=== PATIENT | female | born 1950 | race Caucasian/White ===

== ENCOUNTER 2018-09-12 07:40 | Outpatient (CLI) | payer MEDICARE, MEDICAID ==
--- NOTE | 2018-09-12 13:43 | PET ---
PET WITH CT SKULL TO MID THIGH: CLINICAL HISTORY: Lung tumor, left suprahilar region. There are no comparisons available. RADIOPHARMACEUTICAL: 13.2 mCi F18-FDG interspersed with 10 mL 0.9% sodium chloride, IV. There is appropriate biodistribution of the radiotracer activity. FINDINGS: There is abnormal increased metabolic activity localizing to mass of the left posteromedial lung apex extending to involve the superior aspect of the left hilum. Maximum SUV is approximately 3.0. There is motion artifact markedly distorting the head and neck region. There is activity localizing t o the hard palate, which could relate to misregistration related to the significant degree of patient motion. Left lower quadrant ostomy with presumed physiologic increased activity within bowel at the site of ostomy is seen. There is evidence of pulmonary emphysema. Nonspecific ground-glass opacity is seen at the posterior and lateral right upper lobe, and there is ground-glass reticulonodularity of the left lower lobe. Subpleural patchy ground-glass opacity is seen at the lateral right lung base. IMPRESSION: 1. Abnormal hypermetabolic activity is present, conforming to the soft tissue mass of the posteromed ial left upper lobe, contiguous with the left suprahilar region, which does indicate malignancy. 2. There are scattered nonspecific bilateral ground-glass parenchymal and nodular opacities of each lung superimposed upon pulmonary emphysema. These findings are below threshold for PET resolution. Re commend continued follow-up with CT thorax imaging. 3. Distortion at the head/neck region due to motion distortion. This precludes reliable evaluation o f this region. POS: NORMA
== END 2018-09-12 07:41 | disposition home or self-care (01) ==
LOC: PET 07:40
PROVIDERS: ATTEND Family Medicine
DX: D49.1 Neoplasm of unspecified behavior of respiratory system (principal); R91.8 Other nonspecific abnormal finding of lung field; M95.2 Other acquired deformity of head
CPT/HCPCS: 78815; A9552

== ENCOUNTER 2019-03-20 09:57 | Outpatient (CLI) | payer MEDICARE, MEDICAID ==
[2019-03-20] MEDS ORDERED: ISOVUE-370 76%-LOCM 1 ML ONE (12:46)
--- NOTE | 2019-03-20 14:06 | CT ---
CT CHEST: DATE: 03/20/2019. COMPARISON: 08/07/2013. HISTORY: Lung cancer. TECHNIQUE: Axial CT imaging at 3 mm intervals through the chest with IV contrast. Coronal reformatted imaging o btained. FINDINGS: There is no axillary lymphadenopathy noted. The imaged upper abdomen demonstrates diffuse hypodensity of the imaged hepatic parenchyma, evidence of steatosis. There is atherosclerotic calcification of the upper abdominal aorta and its branches. There is no significant pleural, pericardial, or mediastinal fluid seen. Right-sided Port-A-Cath present. No pneumothorax is noted on either side. There are upper lobe emphysematous changes noted. The bronchi supplying the left lower lobe are irregular with mild nonspecific bronchial wall thickeni ng which could be related to inflammatory change or prior radiation change. The bronchus supplying t jame left upper lobe appears completely occluded. Just superior to the occluded bronchus supplying the left upper lobe there is a mass in the hilar/suprahilar region on the left measuring approximately 3 cm in transverse dimension. When compared to the 2013 examination, the occlusion of the bronchus garner pplying the left upper lobe is new, the thickening and irregularity of the bronchi supplying the left lobe is new, and the mass lesion in the suprahilar region on the left is new. Superior to the left suprahilar mass is significant volume loss involving the left upper lobe with associated shift of the mediastinal structures superiorly and to the left. No additional mass lesion/nodule noted within the left hemithorax. No discrete/dominant pulmonary parenchymal mass lesion or nodule is noted within the right lower lobe , right middle lobe, or right upper lobe. Review of the osseous structures demonstrates no worrisome lytic or blastic bone lesions. IMPRESSION: Since the 2013 examination, there is a new left suprahilar mass obliterating the bronchus supplying t jame left upper lobe. This mass measures at least 3.0 cm in greatest dimension. Superior to this is s ignificant atelectatic change involving the left upper lobe extending into the left lung apex. There is also new irregularity involving the bronchi supplying the left lower lobe which is felt to be the result of radiation therapy and associated scar/fibrotic change. The left suprahilar mass is consis tent with malignancy. POS: OFF
== END 2019-03-20 09:58 | disposition home or self-care (01) ==
LOC: BICCT 09:57
PROVIDERS: ATTEND Internal Medicine Hematology & Oncology
DX: C34.90 Malignant neoplasm of unspecified part of unspecified bronchus or lung (principal); R91.8 Other nonspecific abnormal finding of lung field
CPT/HCPCS: 71260; 82565; Q9966

== ENCOUNTER 2019-07-31 09:02 | Outpatient (CLI) | payer MEDICARE, MEDICAID ==
--- NOTE | 2019-07-31 10:51 | MMO ---
Bilateral MAMMO Bilat Diag DDI+JOSE. CLINICAL HISTORY: Patient is 69 years old and is seen for screening. The patient has the following family history of breast cancer: sister, at age 58. VIEWS: The views performed were: bilateral craniocaudal with tomosynthesis and bilateral mediolateral oblique with tomosynthesis. FILMS COMPARED: The present examination has been compared to a prior imaging study performed at [facility] on 07/31/2019. This study has been interpreted with the assistance of computer-aided detection. MAMMOGRAM FINDINGS: There are scattered fibroglandular densities. There are no suspicious masses, suspicious calcifications, or new areas of architectural distortion. There are no mammographic or sonographic abnormalities in the area of palpable concern. The patient is referred back to her clinician. Negative imaging findings should not preclude biopsy if clinical findings are suspicious. IMPRESSION: THERE IS NO MAMMOGRAPHIC EVIDENCE OF MALIGNANCY. THE RESULTS OF THIS EXAM WERE SENT TO THE PATIENT. ACR BI-RADS Category 1 - Negative MAMMOGRAPHY NOTE: 1. A negative mammogram report should not delay a biopsy if a dominant of clinically suspicious mass is present. 2. Approximately 10% to 15% of breast cancers are not detected by mammography. 3. Adenosis and dense breasts may obscure an underlying neoplasm. Reported by: TRIXIE WALL MD Electonically Signed: [id number]
--- NOTE | 2019-07-31 11:40 | ULT ---
LIMITED RIGHT BREAST ULTRASOUND: 07/31/2019 PROVIDED CLINICAL HISTORY: Right breast palpable abnormality. FINDINGS: Limited sonographic interrogation of the right breast was performed in the region of palpable concern from the 9 to 12 o'clock positions. The sonographic appearance of the breast parenchyma in this naima on appears normal. IMPRESSION: BI-RADS 1 - negative. Negative imaging findings should not preclude further evaluation of a clinically suspicious area. The patient is referred back to her clinician. POS: OFF
== END 2019-07-31 09:03 | disposition home or self-care (01) ==
LOC: BICMAMMO 09:02
PROVIDERS: ATTEND Family Medicine
DX: N63.41 Unspecified lump in right breast, subareolar (principal)
CPT/HCPCS: 76642; 77066; G0279

== ENCOUNTER 2020-05-23 00:06 | Observation (INO) | payer MEDICARE, MEDICAID ==
[2020-05-23 00:39] LABS: #Basophils 0.1 thou/uL (0.0-0.2); #Eosinphils 0.2 thou/uL (0.0-0.7); #Lymphocytes 1.8 thou/uL (1.20-3.40); #Monocytes 0.9 thou/uL (0.11-0.59); #Neutrophils 8.8 thou/uL (1.40-6.50); %Basophils 0.5 % (0.0-1.0); %Eosinophils 1.7 % (0.0-10.0); %Lymphocytes 15.2 % (21.0-51.0); %Neutrophils 74.6 % (42.0-75.0); Hemoglobin 12.7 g/dL (12.0-16.0); Mean Corpuscular HGB CONC 33.8 g/dL (32.0-36.0); Mean Corpuscular Hemoglobin 30.7 pg (27.0-31.0); Platelet Count 155 thou/uL (130-400); RBC Distribution Width 13.3 % (11.5-14.5); Red Blood Cell (RBC) Count 4.13 mill/uL (4.20-5.40); White Blood Cell (WBC) Count 11.7 thou/uL (4.8-10.8)
[2020-05-23 01:00] LABS: ALT (SGPT) 15 U/L (8-55); AST (SGOT) 19 U/L (5-34); Alkaline Phosphatase 88 U/L (40-110); Anion Gap 15 mmol/L (10-20); BUN (Urea Nitrogen) 23 mg/dL (9.8-20.1); Bilirubin, Total 0.4 mg/dL (0.2-1.2); Calc. Creatinine Clearance 0 mL/min (70-130); Calcium 9.1 mg/dL (7.8-10.44); Carbon Dioxide 31 mmol/L (23-31); Chloride 97 mmol/L (98-107); Estimated GFR-MDRD 40; Globulin 3.6 g/dL (2.4-3.5); Glucose 94 mg/dL (80-115); Potassium 4.7 mmol/L (3.5-5.1); Protein, Total 7.6 g/dL (6.0-8.3); Sodium 138 mmol/L (136-145)
[2020-05-23] MEDS ORDERED: Aspirin 325 MG TAB ONE (02:26)
[2020-05-23] MEDS ORDERED: Acetaminophen 650 MG Suppository PR PRN (03:19)
--- NOTE | 2020-05-23 03:41 | PDOC.HHP ---
Hospitalist HPI - History of Present Illness Slurred speech and right facial droop History of Present Illness: ADMISSION DATE: 05/23/2010 TIME OF ASSESSMENT: 0300 PRIMARY CARE PHYSICIAN: CHIEF COMPLAINT: Dr. Vale HPI: Difficulty obtaining from the patient she is not responding to questions nor following commands. Initially appeared to be somnolent however upon examination of eyes the patient clenches her eyes closed. Was not responding to voice and occasionally responding to sternal rubs. Eventually yelled out "leave me alone". Per ED physician the patient has been like this since arrival and appears to be uncooperative rather than somnolent. She presented to the emergency department via [facility] due to right-sided facial droop and difficulty speaking. On arrival by EMS it was noted that her symptoms have resolved. She complained of a cough and shortness of breath. Also dizziness and headaches. She apparently was last seen at baseline at approximately 2 PM yesterday. ROS: Unable to obtain. When asked if she has pain she yelled "No, leave me alone". ED COURSE: EKG showed NSR, HR 64. Per ED notes she had a CT head which showed no acute changes. CT angiogram of the head and neck done as well which also was unremarkable. Given [address] of the chest showed a mass in the left lung felt to be associated with her history of lung cancer. Associated left upper lobe collapse which is apparently stable. Laboratory studies showed a white count of 11.7, hemoglobin 12.7, hematocrit 37.6, platelets 155. Neutrophils 74.6%. BUN 23, creatinine 1.32, GFR 40. LFTs unremarkable. Troponin negative. BNP 112.6. Admission requested for TIA rule out and recurrent lung mass. PAST MEDICAL HISTORY: 1. Diverticulitis, colostomy 2. COPD 3. CAD 4. Dementia 5. History of overflow incontinence 6. CHF 7. History of SD 8. Emphysema 9. History of lung cancer, status post chemotherapy and according to patient has been in remission. 10. Hypokalemia PAST SURGICAL HISTORY: Colostomy, June 2017 2. PICC line 3. Eye surgery 4. Nasal surgery 5. Appendectomy 6. 7. Hysterectomy SOCIAL HISTORY: She lives in a [place]. No alcohol use, tobacco use or drug use. FAMILY HISTORY: Noncontributory. ALLERGIES: No known drug allergies CURRENT MEDICATIONS: 1. Aspirin 2. Potassium chloride 3. Tramadol 4. Photonix 5. Benzonatate 6. Duo nebs 7. Lasix 8. Gabapentin 9. Loperamide 10. Metoprolol tartrate - Exam General - other findings: VS: Temp 97.7, BP 116/71, HR 67, O2 sat 100% on 2 L per NC, RR 16 Eye - other findings: Difficulty assessing, patient closing her eyes shut tightly Neck: supple Heart: RRR, normal peripheral pulses Respiratory: CTAB, no wheezes, normal chest expansion Respiratory - other findings: Followed commands when asked to take gary breaths, lungs clear Gastrointestinal: soft (obese), non-tender, non-distended, no guarding, no rigidity Extremities: no edema Skin: normal turgor, no lesions, no rashes Neurological: no weakness Neurological - other findings: Uncooperative w/exam Musculoskeletal - other findings: bilateral manufacturer's representative strenth in both hands. Psychiatric: somnolent Psychiatric - other findings: Woken with sternal rub/loud voice. Asked to be left alone. Hospitalist Results - Labs Result Diagrams: 05/23/20 00:27 05/23/20 00:27 Lab results: WBC 11.7 thou/uL (4.8-10.8) H 05/23/20 00:27 Hgb 12.7 g/dL (12.0-16.0) 05/23/20 00:27 Hct 37.6 % (36.0-47.0) 05/23/20 00:27 MCV 91.0 fL (78.0-98.0) 05/23/20 00:27 Plt Count 155 thou/uL (130-400) 05/23/20 00: Neutrophils % 74.6 % (42.0-75.0) 05/23/20 00:27 Sodium 138 mmol/L (136-145) 05/23/20 00:27 Potassium 4.7 mmol/L (3.5-5.1) 05/23/20 00:27 Chloride 97 mmol/L (98-107) L 05/23/20 00:27 Carbon Dioxide 31 mmol/L (23-31) 05/23/20 00:27 BUN 23 mg/dL (9.8-20.1) H 05/23/20 00:27 Creatinine 1.32 mg/dL (0.6-1.1) H 05/23/20 00:27 Glucose 94 mg/dL (80-115) 05/23/20 00:27 Calcium 9.1 mg/dL (7.8-10.44) 05/23/20 00:27 Total Bilirubin 0.4 mg/dL (0.2-1.2) 05/23/20:27 AST 19 U/L (5-34) 05/23/20:27 ALT 15 U/L (8-55) 05/23/20 00: Alkaline Phosphatase 88 U/L (40-110) 05/23/20 00:27 Troponin I 0.019 ng/mL (< 0.028) 05/23/20: B-Natriuretic Peptide 112.6 pg/mL (0-100) H 05/23/20 00:27 Serum Total Protein 7.6 g/dL (6.0-8.3) 05/23/20: Albumin 4.0 g/dL (3.4-4.8) 05/23/20 00:27 Hospitalist H&P A/P - Problem (1) Somnolence Code(s): R40.0 - SOMNOLENCE Status: Acute Assessment and Plan: Patient does respond with sternal rubs and asking to be left alone. Suspect she is uncooperative rather than altered. Does have lung cancer and symptoms concerning for TIA earlier today. Continue Neuro checks. Monitor glucose, as on arrival was 94. Keep NPO until more alert. MRI brain to assess for stroke vs. brain mets. Rule out underlying infection. (2) Leukocytosis Code(s): D72.829 - ELEVATED WHITE BLOOD CELL COUNT, UNSPECIFIED Status: Acute Assessment and Plan: UA/UCx. Awaiting final report for CT chest and CXR. Add lactic acid. Repeat labs in AM. (3) TIA (transient ischemic attack) Code(s): G45.9 - TRANSIENT CEREBRAL ISCHEMIC ATTACK, UNSPECIFIED Status: Suspected Assessment and Plan: As mentioned neuro checks. Echo ordered, as well as Brain MRI. Awaiting CTA H&N report. Neuro consult placed. Continue aspirin and statin. (4) SUSHMA (acute kidney injury) Code(s): N17.9 - ACUTE KIDNEY FAILURE, UNSPECIFIED Status: Acute Assessment and Plan: Gentle IV fluids with D51/2 NS. Monitor renal function. Avoid nephrotoxic agents. (5) History of lung cancer Code(s): Z85.118 - PERSONAL HISTORY OF MALIGNANT NEOPLASM OF BRONCHUS AND LUNG Status: Chronic Assessment and Plan: Apparently reported remission but has evidence of malignancy on CT imaging. Unclear if any indication for Oncology consult at this point. May be ok to follow-up as an outpatient if remains stable from cancer perspective. Monitor O2 sats. Currently on O2 by NC. Per patient she does not use home O2. Continue nebs. Check D-dimer given risk for PE with malignancy. Venous doppler. (6) CAD (coronary artery disease) Code(s): I25.10 - ATHSCL HEART DISEASE OF [place] CORONARY ARTERY W/O ANG PCTRS Status: Chronic (7) Chronic heart failure Code(s): I50.9 - HEART FAILURE, UNSPECIFIED Status: Chronic Assessment and Plan: Resume home medications as appropriate. (8) Dementia Code(s): F03.90 - UNSPECIFIED DEMENTIA WITHOUT BEHAVIORAL DISTURBANCE Status: Chronic (9) COPD (chronic obstructive pulmonary disease) Status: Chronic - Plan Plan: Reconcile home medications as appropriate. GI Prophylaxis with Famotidine. Palliative care for complex decision making and advanced directives. Discussed with attending who agrees with plan as above.
[2020-05-23] MEDS: Dextrose 5 %-0.45 % NaCl 1,000 ML IV SCH (04:37)
[2020-05-23 04:41] LABS: #Eosinphils 0.2 thou/uL (0.0-0.7); #Lymphocytes 2.4 thou/uL (1.20-3.40); #Monocytes 1.5 thou/uL (0.11-0.59); #Neutrophils 7.7 thou/uL (1.40-6.50); %Eosinophils 1.7 % (0.0-10.0); %Lymphocytes 20.4 % (21.0-51.0); %Monocytes 12.6 % (0.0-10.0); %Neutrophils 65.3 % (42.0-75.0); Hemoglobin 12.1 g/dL (12.0-16.0); Mean Corpuscular HGB CONC 32.4 g/dL (32.0-36.0); Mean Corpuscular Hemoglobin 29.5 pg (27.0-31.0); Mean Corpuscular Volume 91.1 fL (78.0-98.0); Mean Platelet Volume 9.3 fL (7.4-10.4); Platelet Count 144 thou/uL (130-400); RBC Distribution Width 13.1 % (11.5-14.5); White Blood Cell (WBC) Count 11.8 thou/uL (4.8-10.8)
[2020-05-23 04:46] LABS: PTT 30.9 sec (22.9-36.1); Prothrombin Time 13.6 sec (12.0-14.7)
[2020-05-23 04:48] LABS: D-Dimer Test 0.55 *mcg/mL (0.27-0.43)
[2020-05-23 04:56] LABS: Lactic Acid 1.2 mmol/L (0.5-2.2)
[2020-05-23 04:58] LABS: Glucose 84 mg/dL (80-115)
[2020-05-23 05:00] LABS: Anion Gap 14 mmol/L (10-20); BUN (Urea Nitrogen) 23 mg/dL (9.8-20.1); Calc. Creatinine Clearance 0 mL/min (70-130); Carbon Dioxide 30 mmol/L (23-31); Cardiac Risk 2.8 (Less than 4.5); Chloride 100 mmol/L (98-107); Cholesterol 127 mg/dl (< 200 Desired); Estimated GFR-MDRD 44; Glucose 85 mg/dL (80-115); HDL Cholesterol 45 mg/dL (>60 Neg Risk); LDL Cholesterol, Calculated 67 mg/dL; Magnesium 2.3 mg/dL (1.6-2.6); Potassium 4.6 mmol/L (3.5-5.1); Sodium 139 mmol/L (136-145); Triglycerides 77 mg/dL (Less than 150)
[2020-05-23 05:05] LABS: Troponin I 0.018 ng/mL (< 0.028)
[2020-05-23 07:08] LABS: Troponin I 0.011 ng/mL (< 0.028)
--- NOTE | 2020-05-23 07:22 | CT ---
PRELIMINARY REPORT/[facility]/EMERGENCY AFTER HOURS PROCEDURE EXAM: CT Head Without Intravenous Contrast. CLINICAL HISTORY: [facility] after it was noted at 11:00 tonight (1 hour prior to arrival) that she had right-sided facial droop and difficulty speaking. Her symptoms resolved by the time EMS arrived TECHNIQUE: Axial computed tomography images of the head/brain without intravenous contrast. COMPARISON: CT\SR - CT BRAIN W WO CON - 02/26/2013 08:20 AM CDT FINDINGS: BRAIN: Diffuse prominence of the sulci and ventricles suggesting cerebral atrophy with significant progressi on since prior CT scan. There are increased deep white matter low attenuation changes suggesting worsening small vessel disease. Stable lacunar infarct in right basal ganglia. No acute intraparenchymal hemorrhage. No mass lesion. No CT evidence for acute territorial infarct. N o midline shift or extra-axial collection. VENTRICLES: No hydrocephalus. ORBITS: The orbits are unremarkable. SINUSES AND MASTOIDS: The paranasal sinuses and mastoid air cells are clear. SOFT TISSUES: No significant facial or scalp soft tissue swelling evident. No radiopaque foreign body is seen. BONES: No acute skull fracture. IMPRESSION: Interval progression of diffuse severe atrophy and white matter small vessel disease changes. No acute intracranial abnormality. ELECTRONICALLY SIGNED BY: Harriet Eisenberg MD May 23, 2020 12:58:35 AM OPTICAL SALES ASSOCIATE This report is intended for review by the ordering physician only, in accordance of law. If you recei ve this report in error, please call [facility] at [phone]. FINAL REPORT Exam: Head CT without contrast HISTORY: Right-sided facial droop. Difficulty speaking. COMPARISON: 12/01/2019 FINDINGS: Hemorrhage: No intraparenchymal hemorrhage or extra-axial hematoma. Brain parenchyma: Cortical hernandez-white matter differentiation is preserved. No mass effect or midline shift. Basilar cisterns are patent. Ventricular system: Ventricles and sulci are patent and symmetric. Calvarium: Intact. Sinuses and mastoid air cells: Adequate aeration. IMPRESSION: 1. This report is in agreement with initial report by [facility]. 2. No acute intracranial process. 3. Worsening white matter hypodensities. Hypodensities favor diffuse chronic small vessel ischemic ch priscila versus diffuse cerebral vasogenic edema. Better interrogation with brain MRI is recommended. Code QA Transcribed Date/Time: 05/23/2020 7:52 AM
--- NOTE | 2020-05-23 07:44 | ULT ---
ULTRASOUND DOPPLER DUPLEX VENOUS BILATERAL LOWER EXTREMITIES: DATE: 05/23/2020 HISTORY: Bilateral lower extremity pain TECHNIQUE: Grayscale, color-flow, and spectral analysis, of major veins of bilateral lower extremities. FINDINGS: There is demonstration of blood flow with normal compressibility, of the bilateral common femoral, pr ofunda femoral, greater saphenous, femoral, popliteal, and posterior tibial, veins. IMPRESSION: Negative. No deep venous thrombosis of bilateral lower extremities.
--- NOTE | 2020-05-23 07:59 | RAD ---
EXAM: XR Chest 1 View Portable PROVIDED CLINICAL HISTORY: Left-sided weakness COMPARISON: 10/22/2017 FINDINGS: Left hemithoracic volume loss with shift of the mediastinal contents leftward and left apical opacity appears similar to prior. Right lung appears clear. Vascular calcification is seen. Right-sided implanted port is again noted in similar position. No pleural fluid or pneumothorax evident. IMPRESSION: Stable radiographic appearance of the chest. Please correlate with subsequently performed CT.
--- NOTE | 2020-05-23 08:01 | CT ---
PRELIMINARY REPORT/[facility]/EMERGENCY AFTER HOURS PROCEDURE Addendum: Prior chest CT scans submitted from March 20, 2019 for comparison Mass in the superior left hilum appears mildly increased in size. On current study this measures 2.7 x 3.3 x 2.2 cm and previously measured 2.2 x 2.8 x 2 cm. Addendum electronically signed by Harriet Eisenberg MD on May 23, 2020 2:35:51 AM MINE GEOLOGIST Addendum Comparison with CTA head and neck CT angiogram images of the upper chest demonstrate partly visualized 2.7 x 3.3 cm lobular mass in the superior left hilum which is likely source of left upper lobe collapse. Addendum electronically signed by Harriet Eisenberg MD on May 23, 2020 2:04:34 AM MINE GEOLOGIST EXAM: CT Chest with Intravenous Contrast. CLINICAL HISTORY: ER 9... SOB; Patient complains of numerous issues including cough, shortness of breath, dizziness, an d headache. She cannot tell me how long these symptoms have been ongoing. Past medical history includes cardiac history, coronary artery disease, myocardial infarction, Treated with stent placemen t, Number of stents: 2, Past medical history includes history of emphysema, Lung CA IN 2018 RECEIVED CHEMOTHERAPY-ONCOLOGIST REPORTS PT IS IN REMISSION TECHNIQUE: Axial computed tomography images of the chest with intravenous contrast. CONTRAST: With; ISOVUE 370 60ml COMPARISON: None provided. FINDINGS: LUNGS: There is complete collapse of the left upper lobe with cutoff of the left upper lobe bronchus suggest ing endobronchial mass or mucous plugging. Underlying lungs show moderate to severe emphysema. No acute airspace opacities. Nonspecific adjacent Soft tissue infiltration along the airways of superio r segment of left lower lobe. PLEURAL SPACES: No pleural effusion. No pneumothorax. HEART AND MEDIASTINUM: No cardiomegaly. There are atherosclerotic calcifications in the coronary arteries.No significant per icardial effusion. Central venous catheter tip is in the SVC. LYMPH NODES: No lymphadenopathy. BONES: No focal osseous abnormality or acute fracture. CHEST WALL AND UPPER ABDOMEN: The upper abdominal solid organs are unremarkable. The chest wall is unremarkable. IMPRESSION: Findings consistent with complete collapse of the left upper lobe. Abrupt cut off of the left upper lobe bronchus suggests underlying occlusive mass or mucous plugging. Recommendation: Comparison with any prior diagnostic imaging as well as bronchoscopy. ELECTRONICALLY SIGNED BY: Harriet Eisenberg MD May 23, 2020 2:00:36 AM MINE GEOLOGIST This report is intended for review by the ordering physician only, in accordance of law. If you recei ve this report in error, please call [facility] at [phone]. FINAL REPORT Exam: Chest CT with contrast COMPARISON: 03/20/2019 HISTORY: Cough. Shortness of breath and dizziness. FINDINGS: Mediastinum: No mass, lymphadenopathy or hematoma. Heart: Normal heart size. Minimal coronary calcifications. No significant pericardial fluid. Subdiaphragmatic structures: No acute abnormality. Trachea and central bronchi are patent. Stable volume loss with consolidation in the left upper lobe secondary to complete collapse of the ai rway likely from endobronchial mass. Stable increased soft tissue density with air bronchogram in the left hilum. Stable compensatory hyperinflation of the right lung. Redemonstration of a Mediport c atheter. Pneumothorax: None. Pleural effusion: None. Osseous abnormalities: No acute osseous abnormalities. IMPRESSION: 1. This report is in agreement with initial by [facility]. 2. Abrupt termination of left upper lobe bronchus suggesting an occlusive mass with resultant postobs tructive atelectasis/collapse of left upper lobe. Increased fullness in the left hilum. Findings are similar to the previous examination and may represent a component of post treatment change. Under lying neoplasm cannot be excluded. Correlate clinically. Code QA. Transcribed Date/Time: 05/23/2020 8:26 AM
--- NOTE | 2020-05-23 08:31 | CT ---
PRELIMINARY REPORT/[facility]/EMERGENCY AFTER HOURS PROCEDURE EXAM: CTA Head and Neck with Intravenous Contrast. CLINICAL HISTORY: Patient brought to the ER by EMS from longterm after it was noted at 11:00 tonight (1 hour prior to arrival) that she had right-sided facial droop and difficulty speaking. Her symptoms resolved by the time EMS arrived TECHNIQUE: Axial CTA images of the head and neck performed with intravenous contrast. Two-dimensional MIP and/or three-dimensional MIP and volume rendered reformations were performed. Note: Per PQRS, the description of internal carotid artery percent stenosis, including 0 percent or n ormal exam, is based on [place] Symptomatic Carotid Endarterectomy Trial (NASCET) criteria. CONTRAST: With; ISOVUE 370. 60ml COMPARISON: None provided. FINDINGS: CTA NECK: COMMON CAROTID ARTERIES Scattered calcifications are noted in the bilateral common carotid arteries and carotid bulb. No significant stenosis. No dissection or occlusion. INTERNAL CAROTID ARTERIES No stenosis by NASCET criteria. No dissection or occlusion. VERTEBRAL ARTERIES No significant stenosis. No dissection or occlusion. CTA HEAD: ANTERIOR CEREBRAL ARTERIES No significant stenosis. No occlusion. No aneurysm. MIDDLE CEREBRAL ARTERIES No significant stenosis. No occlusion. No aneurysm. POSTERIOR CEREBRAL ARTERIES No significant stenosis. No occlusion. No aneurysm. BASILAR ARTERY No significant stenosis. No occlusion. No aneurysm. OTHER: SOFT TISSUES Lobular mass in the superior left hilum measures 2.7 x 3.3 cm. There is collapse of the left upper lo be. Underlying lungs show moderate to severe emphysema. BONES No acute osseous abnormality. IMPRESSION: Unremarkable CTA of the head and neck. Soft tissue mass in the superior left hilum that is most likely source of left upper lobe collapse. ELECTRONICALLY SIGNED BY: Harriet Eisenberg MD May 23, 2020 2:11:59 AM USED CAR LOT ATTENDANT This report is intended for review by the ordering physician only, in accordance of law. If you recei ve this report in error, please call [facility] at [phone]. FINAL REPORT EXAM: CT ANGIOGRAM OF THE HEAD AND NECK INDICATION: Right-sided facial droop. Difficulty speaking. COMPARISON: None TECHNIQUE: CT angiogram of the head and neck are performed in the axial plane. Three-dimensional refo rmatted images are submitted for interpretation. FINDINGS: CTA OF THE HEAD WITH AND WITHOUT CONTRAST: POSTCONTRAST CT OF BRAIN: Pathologic enhancement: No pathologic enhancement the brain. Postcontrast soft tissue neck CT: Aerodigestive tract:Aerodigestive tract is patent. No mucosal abnormality. Sinuses: Adequately aerated. Orbits: Bilateral ocular lenses are appropriately located. Both globes are intact. Retrobulbar fat is preserved. Symmetric attenuation the optic nerves and ocular rectus muscles. Salivary glands:Symmetric attenuation Thyroid gland: Multiple hypodensities Lymph nodes: No evidence of lymphadenopathy by size criteria. Paraspinal muscles: Symmetric attenuation of the sternocleidomastoid muscles. Appropriate attenuation of the paraspinal muscles. Cervical spine:Vertebral body height is maintained. No fracture. No significant central canal stenosi s or significant neural foraminal narrowing. Limited evaluation by technique. Upper mediastinum and lung apices: Refer to chest CT for further detail. CTA OF THE NECK WITH CONTRAST: Aorta: Appropriate enhancement and luminal diameter Right carotid artery: No significant stenosis based upon NASCET criteria. Left carotid: No significant stenosis based upon NASCET criteria. Subclavian arteries:Patent Vertebral arteries:Patent CTA OF THE BRAIN: Intracranial internal carotid arteries:Patent Anterior circulation: No significant stenosis Intracranial vertebral arteries: Patent Posterior circulation: No significant stenosis IMPRESSION: 1. This report is in agreement with initial report by [facility]. 2. No hemodynamically significant stenosis, occlusion or aneurysmal formation. Transcribed Date/Time: 05/23/2020 8:34 AM
[2020-05-23] MEDS ORDERED: Aspirin Chewable 81 MG TAB ONE (09:11)
[2020-05-23] MEDS ORDERED: Famotidine 20 MG TAB ONE (09:11)
--- NOTE | 2020-05-23 12:03 | MRI ---
MRI BRAIN NONCONTRAST: DATE: 05/23/2020 HISTORY: 69-year-old female with abnormal brain CT. Acute stroke symptoms. Right facial droop and dysarthria. COMPARISON: MRI of 05/31/2015 FINDINGS: Images are degraded by patient motion. There is no midline shift or any other evidence of mass effect . There is no extra-axial fluid collection. There are extensive, confluent T2-hyperintensities throughout the cerebral white matter consistent with severe chronic ischemic white matter changes due to microvascular atherosclerosis. This has become worse. There is diffuse brain parenchymal volume loss. There is no evidence of recent hemorrhage or restricted diffusion. There are multiple tiny old lacunar infarctions in the bilateral basal ganglia and caudate nuclei, and at least one in the right cerebellar hemisphere inferiorly. IMPRESSION: 1) interval worsening of severe chronic ischemic white matter changes. Is there history of external b eam irradiation therapy to the brain? 2) multiple tiny old lacunar infarctions in the bilateral deep hernandez nuclei, and at least one in the r ight cerebellum. 3) no acute findings.
[2020-05-23 13:10] LABS: SARS-CoV-2 MS2 Positive; SARS-CoV-2 N Gene Negative; SARS-CoV-2 S Gene Negative; SARS-CoV-2 by NAA Not Detected (NotDetected); SARS-CoV-2 orf1ab Negative
[2020-05-23] MEDS ORDERED: Iopamidol 370 76% 100 ML VIAL ONE (13:38)
[2020-05-23] MEDS ORDERED: Iopamidol-370 76% 500 ML 1 ML ONE (13:38)
--- NOTE | 2020-05-23 15:17 | CON ---
NEUROLOGY CONSULTATION DATE OF CONSULTATION: 05/23/2020 REASON FOR CONSULTATION: Slurred speech and right facial droop. HISTORY OF PRESENT ILLNESS: Ms. Mujica is a 69-year-old female with medical history significant for coronary artery disease, dementia, CHF, emphysema, and lung cancer, presented with altered mental status. The patient is unable to provide the history, so history is taken from review of the medical records. Per records, she is very pleasant but does not remember why she is in the hospital, why she was brought to the hospital per nursing staff, and the people at alf found her to be confused with facial droop and slurred speech. She was also found to have weakness on the right side of the body. The patient denies nausea, vomiting, headache, chest pain, abdominal pain, recent illness, or recent exposure to COVID. In the emergency room, head CT was done, which did not reveal any acute intracranial pathology. CT angiogram of the head and neck was also unremarkable. She was given aspirin. CT of the chest showed mass in the left lung associated with prior history of lung cancer. She was admitted to rule out TIA. PAST MEDICAL HISTORY: Diverticulitis, COPD, coronary artery disease, dementia, history of overflow incontinence, CHF, history of emphysema, lung cancer. PAST SURGICAL HISTORY: Colostomy in June 2017, status post PICC line placement, eye surgery, nasal surgery, appendectomy, , hysterectomy. SOCIAL HISTORY: The patient lives in a alf. Denies smoking, alcohol, illegal drug use. FAMILY HISTORY: No family history of stroke. ALLERGIES: NO KNOWN DRUG ALLERGIES. CURRENT HOME MEDICATIONS: Aspirin, potassium chloride, tramadol, Protonix, benzonatate, DuoNeb, Lasix, gabapentin, loperamide, metoprolol. VS: Temp 97.7, BP 116/71, HR 67, O2 sat 100% on 2 L per NC, RR 16 PHYSICAL EXAMINATION: Eye - other findings: Difficulty assessing, patient closing her eyes shut tightly Neck: supple Heart: RRR, normal peripheral pulses Respiratory: CTAB, no wheezes, normal chest expansion Gastrointestinal: soft , non-tender, non-distended, no guarding, no rigidity Extremities: no edema Skin: normal turgor, no lesions, no rashes Neurological: Mental status, the patient is alert and oriented to person, place, and time. Speech is slurred. Mild dysarthria. Cranial nerves 2 through 12 intact except 7, right facial droop 9, 10 with dysarthria. Motor, muscle tone and bulk are normal. Moving all 4 extremities. Extremities equally and symmetrically sensory intact. Withdraws to nailbed pressure bilaterally cerebellar finger- nose testing intact. The patient did not cooperate with strength testing in the leg secondary to pain. Gait deferred due to the patient's safety reasons. DATA REVIEWED: I have reviewed the labs, which were significant for BUN of 23 and creatinine of 1.32. Head CT did not reveal acute intracranial pathology. Lab results: WBC 11.7 thou/uL (4.8-10.8) H 05/23/20 00:27 Hgb 12.7 g/dL (12.0-16.0) 05/23/20 00:27 Hct 37.6 % (36.0-47.0) 05/23/20 00:27 MCV 91.0 fL (78.0-98.0) 05/23/20 00:27 Plt Count 155 thou/uL (130-400) 05/23/20 00:27 Neutrophils % 74.6 % (42.0-75.0) 05/23/20 00:27 Sodium 138 mmol/L (136-145) 05/23/20 00:27 Potassium 4.7 mmol/L (3.5-5.1) 05/23/20 00:27 Chloride 97 mmol/L (98-107) L 05/23/20 00:27 Carbon Dioxide 31 mmol/L (23-31) 05/23/20 00:27 BUN 23 mg/dL (9.8-20.1) H 05/23/20 00:27 Creatinine 1.32 mg/dL (0.6-1.1) H 05/23/20 00:27 Glucose 94 mg/dL (80-115) 05/23/20 00:27 Calcium 9.1 mg/dL (7.8-10.44) 05/23/20 00:27 Total Bilirubin 0.4 mg/dL (0.2-1.2) 05/23/20 00:27 AST 19 U/L (5-34) 05/23/20 00:27 ALT 15 U/L (8-55) 05/23/20 00:27 Alkaline Phosphatase 88 U/L (40-110) 05/23/20 00:27 Troponin I 0.019 ng/mL (< 0.028) 05/23/20 00:27 B-Natriuretic Peptide 112.6 pg/mL (0-100) H 05/23/20 00:27 Serum Total Protein 7.6 g/dL (6.0-8.3) 05/23/20 00:27 Albumin 4.0 g/dL (3.4-4.8) 05/23/20 00:27 ASSESSMENT AND PLAN: (1) Somnolence Code(s): R40.0 - SOMNOLENCE Status: Acute (2) Leukocytosis Code(s): D72.829 - ELEVATED WHITE BLOOD CELL COUNT, UNSPECIFIED Status: Acute (3) TIA (transient ischemic attack) Code(s): G45.9 - TRANSIENT CEREBRAL ISCHEMIC ATTACK, UNSPECIFIED Status: Suspected (4) SUSHMA (acute kidney injury) Code(s): N17.9 - ACUTE KIDNEY FAILURE, UNSPECIFIED Status: Acute (5) History of lung cancer Code(s): Z85.118 - PERSONAL HISTORY OF MALIGNANT NEOPLASM OF BRONCHUS AND LUNG Status: Chronic (6) CAD (coronary artery disease) Code(s): I25.10 - ATHSCL HEART DISEASE OF [place] CORONARY ARTERY W/O ANG PCTRS Status: Chronic (7) Chronic heart failure Code(s): I50.9 - HEART FAILURE, UNSPECIFIED Status: Chronic (8) Dementia Code(s): F03.90 - UNSPECIFIED DEMENTIA WITHOUT BEHAVIORAL DISTURBANCE Status: Chronic (9) COPD (chronic obstructive pulmonary disease) Status: Chronic Ms. Dayana Mujica is a 69-year-old female, who presented with altered mental status and right facial droop with right-sided weakness and slurred speech. Symptoms improved since admission. Altered mental status most likely secondary to seems to be multifactorial secondary to metabolic etiology versus TIA versus seizure like activity in the setting of multi-infarct dementia interval increasing chronic small vessel disease since the last MRI in May 2015.MRI of the brain reviewed, which was done, which did not reveal any acute intracranial pathology. MRI brain consistent with interval increase in chronic small vessel disease. CTA of the head and neck did not reveal hemodynamically significant stenosis, occlusion, or aneurysmal formation. Venogram of bilateral lower extremity was negative for clot. Neuro checks every 4 hours. Continue aspirin, high-intensity statin for secondary stroke prevention. Neuro checks every 4 hours. Continue home medications. Check 2D echo to evaluate for left ventricular ejection pressure in ejection fraction. Continue telemetry. Continue home medications. Continue medical management per primary team, PT/OT/Speech. DVT prophylaxis. We will continue to follow. Job ID: [id number] DIANE
--- NOTE | 2020-05-23 17:58 | PDOC.BPN ---
- Brief Progress Note Encounter Date: 05/23/20 Encounter Time: 17:45 f/u for ? TIA and negative MRI brain and CTA neck. States feeling ok except for coughing and R breast pain. No trauma, drainage or swelling. Reviewed all labs/radiographs with pending Echocardiogram. Likely will d/c back to SNF 05/24/20.
[2020-05-23] MEDS ORDERED: Guaifenesin DM 100-10/5 ML UDCUP PO PRN (17:59)
[2020-05-23 18:51] VITALS: BMI 43.0
[2020-05-23] MEDS: Famotidine 20 MG TAB PO SCH ×2 (20:52)
[2020-05-23] MEDS: Metoprolol Tartrate 25 MG TAB PO SCH (20:53)
[2020-05-23] MEDS ORDERED: Atorvastatin Calcium 40 MG TAB PO SCH (21:00)
[2020-05-23] MEDS: Nystatin Powder 15 GM BOT TOP SCH (21:03)
[2020-05-24] MEDS ORDERED: traMADol HCl 50 MG TAB PO PRN (03:44)
[2020-05-24 05:13] LABS: Anion Gap 14 mmol/L (10-20); BUN (Urea Nitrogen) 17 mg/dL (9.8-20.1); Calc. Creatinine Clearance 77 mL/min (70-130); Calcium 9.5 mg/dL (7.8-10.44); Carbon Dioxide 30 mmol/L (23-31); Chloride 101 mmol/L (98-107); Estimated GFR-MDRD 51; Glucose 85 mg/dL (80-115); Potassium 4.8 mmol/L (3.5-5.1); Sodium 140 mmol/L (136-145)
[2020-05-24] MEDS: Aspirin 81 mg Enteric Coated Tablet PO SCH ×2 (05:38→10:08)
[2020-05-24] MEDS: Dextrose 5 %-0.45 % NaCl 1,000 ML IV SCH (05:40)
[2020-05-24] MEDS ORDERED: Nystatin Powder 15 GM BOT TOP PRN (09:06)
[2020-05-24] MEDS ORDERED: Benzonatate 100 MG CAP PO PRN (09:06)
[2020-05-24] MEDS ORDERED: traZODone HCl 50 MG TAB PO PRN (09:06)
[2020-05-24] MEDS: Famotidine 20 MG TAB PO SCH (10:08)
[2020-05-24] MEDS: Metoprolol Tartrate 25 MG TAB PO SCH (10:08)
[2020-05-24] MEDS: Nystatin Powder 15 GM BOT TOP SCH (10:10)
[2020-05-24] MEDS: Acetaminophen 325 MG TAB PO PRN ×2 (10:10→16:27)
--- NOTE | 2020-05-24 12:22 | PDOC.NEUPN ---
- Subjective Encounter Date: 05/24/20 Subjective: Patient feels better today and is alert and oriented to person, place but not year. - Objective Vital Signs & Weight: Vital Signs (12 hours) Temp Pulse Pulse Resp BP BP Pulse Ox 05/24/20 11:00 97.4 F L 79 14 169/79 H 99 05/24/20 10:51 97 05/24/20 10:47 79 20 97 05/24/20 08:40 75 158/81 H 05/24/20 07:12 97.9 F 82 20 138/69 92 L 05/24/20 03:44 97.8 F 81 16 134/96 H 94 L Weight Weight 212 lb 11.2 oz I&O: 05/23/20 05/24/20 05/25/20 06:59 06:59 06:59 Intake Total 350 480 Output Total 725 Balance -375 480 Result Diagrams: 05/23/20 04:30 05/24/20 04:15 Additional Labs: Accuchecks 05/24/20 05/24/20 12:03 06:04 POC Glucose 125 H 93 Radiology Reviewed by me: Yes EKG Reviewed by me: Yes ROS - Review of Systems Constitutional: denies: fever, chills, sweats, weakness, malaise, other Eyes: denies: pain, vision change, conjunctivae inflammation, eyelid inflammation, redness, other ENT: denies: ear pain, ear discharge, nose pain, nose discharge, nose congestion, mouth pain, mouth swelling, throat pain, throat swelling, other Respiratory: denies: cough, dry, shortness of breath, hemoptysis, SOB with excertion, pleuritic pain, sputum, wheezing, other Gastrointestinal: denies: nausea, vomiting, abdominal pain, diarrhea, constipation, melena, hematochezia, other Musculoskeletal: denies: neck pain, shoulder pain, arm pain, back pain, hand pain, leg pain, foot pain, other Skin: denies: rash, lesions, charly, bruising, other Neurological: denies: weakness, numbness, incoordination, change in speech, confusion, seizures, other - Medication Medications: Active Medications Generic Name Dose Route Start Last Admin Trade Name Freq PRN Reason Stop Dose Admin Acetaminophen 650 mg 05/23/20 03:19 05/24/20 10:10 Acetaminophen 325 Mg Tab PO 650 mg Q4H PRN Administration Headache/Fever/Mild Pain (1-3) Albuterol/Ipratropium 3 ml 05/24/20 09:06 05/24/20 10:47 Ipratropium/Albuterol Sulfate 3 Ml Neb NEB 3 ml Q6H PRN Administration SOB &/or Wheezing Famotidine 20 mg 05/23/20 09:00 05/24/20 10:08 Famotidine 20 Mg Tab PO 20 mg BID YOSI Administration Dextrose/Sodium Chloride 1,000 mls @ 50 mls/hr 05/23/20 04:00 05/24/20 05:40 D5 1/2 Ns IV 1,000 mls .Q20H YOSI Administration Nystatin 0 gm 05/23/20 21:00 05/24/20 10:10 Nystatin Powder 15 Gm Bot TOP 1 applic BID YOSI Administration Tramadol HCl 50 mg 05/24/20 03:44 05/24/20 04:20 Tramadol Hcl 50 Mg Tab PO 50 mg DAILYPRN PRN Administration Pain - Exam General Appearance: awake alert Eye: PERRL ENT: normocephalic atraumatic Neck: supple Respiratory: CTAB Cardiovascular: RRR Gastrointestinal: soft Extremities: no cyanosis Skin: normal turgor Neurological: no new deficit Musculoskeletal: no muscle wasting PSYCH: normal affect, normal behavior, A&O x 3, oriented to person, oriented to place Results - Labs Result Diagrams: 05/23/20 04:30 05/24/20 04:15 Lab results: WBC 11.8 thou/uL (4.8-10.8) H 05/23/20 04:30 Hgb 12.1 g/dL (12.0-16.0) 05/23/20 04:30 Hct 37.4 % (36.0-47.0) 05/23/20 04:30 MCV 91.1 fL (78.0-98.0) 05/23/20 04:30 Plt Count 144 thou/uL (130-400) 05/23/20 04:30 Neutrophils % 65.3 % (42.0-75.0) 05/23/20 04:30 Sodium 140 mmol/L (136-145) 05/24/20 04:15 Potassium 4.8 mmol/L (3.5-5.1) 05/24/20 04:15 Chloride 101 mmol/L (98-107) 05/24/20 04:15 Carbon Dioxide 30 mmol/L (23-31) 05/24/20 04:15 BUN 17 mg/dL (9.8-20.1) 05/24/20 04:15 Creatinine 1.08 mg/dL (0.6-1.1) 05/24/20 04:15 Glucose 85 mg/dL (80-115) 05/24/20 04:15 Lactic Acid 1.2 mmol/L (0.5-2.2) 05/23/20 04:30 Calcium 9.5 mg/dL (7.8-10.44) 05/24/20 04:15 Total Bilirubin 0.4 mg/dL (0.2-1.2) 05/23/20 00:27 AST 19 U/L (5-34) 05/23/20 00:27 ALT 15 U/L (8-55) 05/23/20 00:27 Alkaline Phosphatase 88 U/L (40-110) 05/23/20 00:27 Troponin I 0.011 ng/mL (< 0.028) 05/23/20 06:38 B-Natriuretic Peptide 112.6 pg/mL (0-100) H 05/23/20 00:27 Serum Total Protein 7.6 g/dL (6.0-8.3) 05/23/20 00:27 Albumin 4.0 g/dL (3.4-4.8) 05/23/20 00:27 - Radiology Interpretation MRI - head Additional Comment: MRI the brain reviewed which was negative for acute intracranial pathology PN A/P (1) TIA (transient ischemic attack) Code(s): G45.9 - TRANSIENT CEREBRAL ISCHEMIC ATTACK, UNSPECIFIED Status: Suspected (2) SUSHMA (acute kidney injury) Code(s): N17.9 - ACUTE KIDNEY FAILURE, UNSPECIFIED Status: Acute (3) Leukocytosis Code(s): D72.829 - ELEVATED WHITE BLOOD CELL COUNT, UNSPECIFIED Status: Acute (4) Somnolence Code(s): R40.0 - SOMNOLENCE Status: Acute (5) CAD (coronary artery disease) Code(s): I25.10 - ATHSCL HEART DISEASE OF [place] CORONARY ARTERY W/O ANG PCTRS Status: Chronic (6) COPD (chronic obstructive pulmonary disease) Status: Chronic (7) Chronic heart failure Code(s): I50.9 - HEART FAILURE, UNSPECIFIED Status: Chronic (8) Dementia Code(s): F03.90 - UNSPECIFIED DEMENTIA WITHOUT BEHAVIORAL DISTURBANCE Status: Chronic (9) History of lung cancer Code(s): Z85.118 - PERSONAL HISTORY OF MALIGNANT NEOPLASM OF BRONCHUS AND LUNG Status: Chronic - Plan Daily Plan: PT/OT, speech therapy, DVT proph w/SCDs Consults: Other (snf facility) Ms. Dayana Mujica is a 69-year-old female who presented with slurred speech and right facial droop. Neurological deficits improved. The patient is much more awake today and following commands. She denies any new complaints since the last 24 hours. MRI of the brain reviewed which was negative for acute intracranial pathology. CTA of the head and neck did not reveal hemodynamically significant stenosis. Venogram of bilateral lower extremity did not reveal any clot. Neurochecks every 4 hours. Telemetry 2D echo pending. We will follow up on the results. Continue aspirin and high intensity statin for secondary stroke prevention. Strict control of blood pressure and blood glucose. Continue home medications Continue medical management per primary team. PT/OT/speech DVT prophylaxis Plan discussed with the patient and the nursing staff.
[2020-05-24 13:08] LABS: Bacteria/HPF None Seen HPF (None Seen); Bilirubin Negative (Negative); Blood, Urine Negative (Negative); Clarity Clear (Clear); Glucose, Urine (Dipstick) Normal (Negative); Ketone, Urine Negative (Negative); Leukocyte Negative Leu/uL (Negative); Nitrite Negative (Negative); Protein, Urine (Dipstick) Negative (Neg-Trace); RBC/HPF 0-3 HPF (0-3); Specific Gravity, Urine 1.009 (1.002-1.036); Squamous Epithelial 0-3 HPF (0-3); Urobilinogen Normal mg/dL (Less than 2); WBC/HPF 0-3 HPF (0-3); pH, Urine 7.5 (5.0-9.0)
[2020-05-24 13:12] LABS: Urine Culture Reflex No No
--- NOTE | 2020-05-24 14:04 | PDOC.FMACP ---
Advance Care Planning - Problem (1) Palliative care encounter Status: Acute Code(s): Z51.5 - ENCOUNTER FOR PALLIATIVE CARE (2) SUSHMA (acute kidney injury) Status: Acute Code(s): N17.9 - ACUTE KIDNEY FAILURE, UNSPECIFIED (3) COPD (chronic obstructive pulmonary disease) Status: Chronic (4) Chronic heart failure Status: Chronic Code(s): I50.9 - HEART FAILURE, UNSPECIFIED (5) Dementia Status: Chronic Code(s): F03.90 - UNSPECIFIED DEMENTIA WITHOUT BEHAVIORAL DISTURBANCE (6) History of lung cancer Status: Chronic Code(s): Z85.118 - PERSONAL HISTORY OF MALIGNANT NEOPLASM OF BRONCHUS AND LUNG - Note Participants: patient, palliative care Summary: Palliative care addressed Advanced Care Planning. Addressed MPOA and resuscitation status. Elected to transition to DNAR, MPOA complete. Will have follow up conversation in relation to Goal of care in relation to diagnosis and multiple morbidities. Appropriate forms and documentation to accomplish the goals of care were discussed. All questions were answered. Time Spent (mins): 15
[2020-05-24 16:05] VITALS: TEMP 98.5
[2020-05-24 16:45] VITALS: BP 129/81
[2020-05-24] MEDS ORDERED: Potassium Chloride 20 MEQ TAB PO SCH (21:00)
[2020-05-24] MEDS ORDERED: Atorvastatin Calcium 40 MG TAB PO SCH (21:00)
[2020-05-24] MEDS ORDERED: Montelukast Sodium 10 mg Tablet PO SCH (21:00)
[2020-05-24] MEDS ORDERED: Gabapentin 300 MG CAP PO SCH (21:00)
--- NOTE | 2020-05-25 02:23 | DIS ---
DATE OF ADMISSION: 05/23/2020 DATE OF DISCHARGE: 05/24/2020 DISCHARGE DIAGNOSES: 1. Transient ischemic attack, resolved. 2. Acute metabolic encephalopathy secondary to #1, resolved. 3. Acute kidney injury, resolved. 4. Lung carcinoma, chronic. 5. Coronary artery disease, chronic and stable. 6. Dementia, mild. CONSULTATIONS: Dr. Tristan with Neurology Service. PERTINENT LABORATORY AND X-RAY FINDINGS: Creatinine ranged between 1.08-1.32. Estimated GFR ranged between 40-51. Magnesium level at 2.3. BNP 113. Troponin-I negative x3. Total cholesterol 127, triglycerides 77, HDL 45, LDL 67. CBC showed a white blood cell count of 11.7, hemoglobin 13, hematocrit 38, platelet count 155. COVID-19 PCR not detected on 05/23/2020. CT of the brain without contrast dated 05/23/2020 showed chronic ischemic changes without acute process. Portable chest x-ray dated on 05/23/2020 showed chronic changes consistent with prior lung cancer history. CT angiogram of the head and neck dated 05/23/2020 showed no hemodynamically significant stenosis, occlusion, or aneurysm. MRI of the brain dated 05/23/2020 showed no acute CVA. Severe chronic white matter ischemic changes noted. Bilateral lower extremity venous Doppler study dated 05/23/2020 showed no evidence for DVT. HOSPITAL COURSE: The patient was initially admitted after presenting with altered mental status with dysarthria and right facial asymmetry, undergoing general stroke protocol. The patient underwent CT angiogram of the head showing chronic ischemic white matter changes without an acute process. The patient underwent MRI imaging of the brain showing no acute process and the rest of the workup was essentially unremarkable. The patient's symptoms improved with supportive management and continuation of aspirin and Lipitor. The patient was evaluated by the Neurology Service who recommended ongoing medical management, but no acute intervention. 2D transthoracic echocardiogram was performed, however, the final results are pending at the time of this dictation. Overall, the patient did remain clinically stable during the hospital course with stable vital signs. I have examined the patient at the time of discharge and discussed followup instructions. The patient verbalized understanding and in agreement, ready for discharge on 05/24/2020. DISCHARGE MEDICATIONS: 1. DuoNeb 3 mL nebulized q.6 hours p.r.n. 2. Enteric-coated aspirin 81 mg p.o. daily. 3. Lasix 80 mg p.o. daily. 4. Gabapentin 300 mg p.o. b.i.d. 5. Potassium chloride 20 mEq p.o. b.i.d. 6. Lipitor 40 mg p.o. at bedtime. 7. Metoprolol tartrate 25 mg p.o. daily. 8. MiraLAX 17 g p.o. daily. 9. Nystatin powder one application topically q.12 hours p.r.n. 10. Protonix 20 mg p.o. daily. 11. Singulair 10 mg p.o. daily. 12. Tramadol 1-2 tabs p.o. q.6 hours p.r.n. 13. Trazodone 50 mg p.o. at bedtime. FOLLOWUP: The patient may follow up with her primary care provider, Dr. Kimi Vale. CONDITION ON DISCHARGE: Fair. ACTIVITY: Ad-keily. Rolling walker with standby assistance. DIET: Heart healthy. CODE STATUS: Do not attempt resuscitation. DISPOSITION: Discharged to [facility] in [place], [place] on 05/24/2020. Job ID: [id number]
[2020-05-25] MEDS ORDERED: Furosemide 80 MG TAB PO SCH (09:00)
[2020-05-25] MEDS ORDERED: Polyethylene Glycol 3350 17 GM Packet PO SCH (09:00)
[2020-05-25] MEDS ORDERED: Aspirin 81 mg Enteric Coated Tablet PO SCH (09:00)
[2020-05-25] MEDS ORDERED: Metoprolol Tartrate 25 MG TAB PO SCH (09:00)
--- NOTE | 2020-05-25 14:10 | CT ---
"PRELIMINARY REPORT" PRELIMINARY REPORT/[facility]/EMERGENCY AFTER HOURS PROCEDURE EXAM: CTA Head and Neck with Intravenous Contrast. CLINICAL HISTORY: Patient brought to the ER by EMS from intermediate after it was noted at 11:00 tonight (1 hour prior to arrival) that she had right-sided facial droop and difficulty speaking. Her symptoms resolved by the time EMS arrived TECHNIQUE: Axial CTA images of the head and neck performed with intravenous contrast. Two-dimensional MIP and/or three-dimensional MIP and volume rendered reformations were performed. Note: Per PQRS, the description of internal carotid artery percent stenosis, including 0 percent or n ormal exam, is based on [place] Symptomatic Carotid Endarterectomy Trial (NASCET) criteria. CONTRAST: With; ISOVUE 370. 60ml COMPARISON: None provided. FINDINGS: CTA NECK: COMMON CAROTID ARTERIES Scattered calcifications are noted in the bilateral common carotid arteries and carotid bulb. No significant stenosis. No dissection or occlusion. INTERNAL CAROTID ARTERIES No stenosis by NASCET criteria. No dissection or occlusion. VERTEBRAL ARTERIES No significant stenosis. No dissection or occlusion. CTA HEAD: ANTERIOR CEREBRAL ARTERIES No significant stenosis. No occlusion. No aneurysm. MIDDLE CEREBRAL ARTERIES No significant stenosis. No occlusion. No aneurysm. POSTERIOR CEREBRAL ARTERIES No significant stenosis. No occlusion. No aneurysm. BASILAR ARTERY No significant stenosis. No occlusion. No aneurysm. OTHER: SOFT TISSUES Lobular mass in the superior left hilum measures 2.7 x 3.3 cm. There is collapse of the left upper lo be. Underlying lungs show moderate to severe emphysema. BONES No acute osseous abnormality. IMPRESSION: Unremarkable CTA of the head and neck. Soft tissue mass in the superior left hilum that is most likely source of left upper lobe collapse. ELECTRONICALLY SIGNED BY: Harriet Eisenberg MD May 23, 2020 2:11:59 AM [employer] This report is intended for review by the ordering physician only, in accordance of law. If you recei ve this report in error, please call [facility] at [phone]. FINAL REPORT EXAM: CT ANGIOGRAM OF THE HEAD AND NECK INDICATION: Right-sided facial droop. Difficulty speaking. COMPARISON: None TECHNIQUE: CT angiogram of the head and neck are performed in the axial plane. Three-dimensional refo rmatted images are submitted for interpretation. FINDINGS: CTA OF THE HEAD WITH AND WITHOUT CONTRAST: POSTCONTRAST CT OF BRAIN: Pathologic enhancement: No pathologic enhancement the brain. Postcontrast soft tissue neck CT: Aerodigestive tract:Aerodigestive tract is patent. No mucosal abnormality. Sinuses: Adequately aerated. Orbits: Bilateral ocular lenses are appropriately located. Both globes are intact. Retrobulbar fat is preserved. Symmetric attenuation the optic nerves and ocular rectus muscles. Salivary glands:Symmetric attenuation Thyroid gland: Multiple hypodensities Lymph nodes: No evidence of lymphadenopathy by size criteria. Paraspinal muscles: Symmetric attenuation of the sternocleidomastoid muscles. Appropriate attenuation of the paraspinal muscles. Cervical spine:Vertebral body height is maintained. No fracture. No significant central canal stenosi s or significant neural foraminal narrowing. Limited evaluation by technique. Upper mediastinum and lung apices: Refer to chest CT for further detail. CTA OF THE NECK WITH CONTRAST: Aorta: Appropriate enhancement and luminal diameter Right carotid artery: No significant stenosis based upon NASCET criteria. Left carotid: No significant stenosis based upon NASCET criteria. Subclavian arteries:Patent Vertebral arteries:Patent CTA OF THE BRAIN: Intracranial internal carotid arteries:Patent Anterior circulation: No significant stenosis Intracranial vertebral arteries: Patent Posterior circulation: No significant stenosis IMPRESSION: 1. This report is in agreement with initial report by [facility]. 2. No hemodynamically significant stenosis, occlusion or aneurysmal formation. Transcribed Date/Time: 05/25/2020 2:09 PM
== END 2020-05-24 18:50 ==
LOC: ERS 00:06 → ERHOLD 02:45 → 2SE 18:27
PROVIDERS: ADMIT Internal Medicine; ATTEND Family Medicine
DX: G45.9 Transient cerebral ischemic attack, unspecified (principal); G93.41 Metabolic encephalopathy; N17.9 Acute kidney failure, unspecified; C34.90 Malignant neoplasm of unspecified part of unspecified bronchus or lung; I25.10 Atherosclerotic heart disease of native coronary artery without angina pectoris; F03.90 Unspecified dementia, unspecified severity, without behavioral disturbance, psychotic disturbance, mood disturbance, and anxiety; J44.9 Chronic obstructive pulmonary disease, unspecified; I50.9 Heart failure, unspecified; I25.2 Old myocardial infarction; D72.829 Elevated white blood cell count, unspecified; Z79.82 Long term (current) use of aspirin; Z79.899 Other long term (current) drug therapy; Z20.828 Contact with and (suspected) exposure to other viral communicable diseases
CPT/HCPCS: 36600; 70450; 70496; 70498; 70551; 71045; 71260; 80048 ×2; 80053; 80061; 81001; 82947; 82962; 83605; 83735; 83880; 84484 ×2; 85025 ×2; 85379; 85610; 85730; 93005; 93306; 93970; 94640; 97110; 97139 ×2; 97530 ×2; 99285; U0003; 36415; 36416; 87635; G0378; J7620; Q9967

== ENCOUNTER 2020-06-13 04:42 | Emergency (ER) | payer MEDICARE, MEDICAID | END 2020-06-13 07:07 | disposition home or self-care (01) | LOC: ERS 04:42 | DX: R29.898 Other symptoms and signs involving the musculoskeletal system (principal); I25.10 Atherosclerotic heart disease of native coronary artery without angina pectoris; F03.90 Unspecified dementia, unspecified severity, without behavioral disturbance, psychotic disturbance, mood disturbance, and anxiety; J43.9 Emphysema, unspecified; I25.2 Old myocardial infarction; E87.6 Hypokalemia; F32.9 Major depressive disorder, single episode, unspecified; Z86.73 Personal history of transient ischemic attack (TIA), and cerebral infarction without residual deficits; Z79.82 Long term (current) use of aspirin; Z85.118 Personal history of other malignant neoplasm of bronchus and lung; Z79.899 Other long term (current) drug therapy; Z79.51 Long term (current) use of inhaled steroids ==